=== PATIENT | male | born 1975 | race Caucasian/White ===

== ENCOUNTER 2018-12-02 14:39 | Observation (INO) | payer OTHER ==
--- NOTE | 2018-12-02 15:00 | EDPHY ---
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 He has a laceration, dorsal and palmar aspect to the webspace of his left thumb. This happened just prior to arrival. He denies other injuries. No wrist pain. Severity: Moderate Modifying factors: None REVIEW OF SYSTEMS: Constitutional: denies: chills, fever, recent illness, recent injury EENTM: denies: blurred vision, double vision, nose congestion Respiratory: denies: cough, shortness of breath Cardiac: denies: chest pain, irregular heart rate, lightheadedness, palpitations Gastrointestinal/Abdominal: denies: abdominal pain, diarrhea, nausea, vomiting, blood streaked stools Genitourinary: denies: dysuria, frequency, hematuria, pain Musculoskeletal: See HPI Skin: See HPI Neurological: denies: headache, numbness, paresthesia, tingling, dizziness, weakness Hematologic/Lymphatic: denies: blood clots, easy bleeding, easy bruising Immunologic/allergic: denies: HIV/AIDS, transplant 10 systems reviewed and negative except as noted EXAM: GENERAL: Well-appearing, well-nourished and in no acute distress. HEAD: Atraumatic, normocephalic. EYES: Pupils equal round and reactive to light, extraocular movements intact, sclera anicteric, conjunctiva are normal. ENT: TMs normal, nares patent, oropharynx clear without exudates. Moist mucous membranes. NECK: Normal range of motion, supple without lymphadenopathy or JVD. LUNGS: Breath sounds clear to auscultation bilaterally and equal. No wheezes rales or rhonchi. HEART: Regular rate and rhythm without murmurs, rubs or gallops. ABDOMEN: Soft, nontender, normoactive bowel sounds. No guarding, no rebound. No masses appreciated. BACK: No CVA tenderness, no spinal tenderness, step-offs or deformities EXTREMITIES: Laceration to webspace of left hand. Macerated. There is some skin in the middle head is still connected. Normal movement and sensation distally. Normal capillary refill. Very dirty NEUROLOGICAL: Cranial nerves II through XII grossly intact. Normal speech, normal gait. 5/5 strength, normal movement in all extremities, normal sensation , normal reflexes PSYCH: Normal mood, normal affect. SKIN: Warm, dry, normal turgor, no visible rashes or lesions. Source: Patient Exam Limitations: No limitations - Personal History Current Tetanus/Diphtheria Vaccine: Yes Current Tetanus Diphtheria and Acellular Pertussis (TDAP): Yes - Medical/Surgical History Hx Asthma: No Hx Chronic Respiratory Disease: No Hx Diabetes: No Hx Cardiac Disease: No Hx Renal Disease: No Hx Cirrhosis: No Hx Alcoholism: No Hx HIV/AIDS: No Hx Splenectomy or Spleen Trauma: No Other PMH: denies - Family History Significant Family History: No pertinent family hx - Social History Smoking Status: Heavy smoker Alcohol Use: None Constitutional: Initial Vital Signs Temperature (C) 36.7 C 12/02/18 14:47 Heart Rate 110 H 12/02/18 14:47 Respiratory Rate 20 12/02/18 14:47 Blood Pressure 148/101 H 12/02/18 14:47 O2 Sat (%) 95 12/02/18 14:47 O2 Delivery Mode Room Air Allergies/Adverse Reactions: No Known Allergies Allergy (Unverified 06/07/11 19:13) Home Medications: Medication Instructions Recorded NK [No Known Home Meds] 12/02/18 Medical Decision Making - Diagnostics Imaging Results: Imaging Impressions Hand X-Ray 12/02/18 14:50 Impression: Nondisplaced transverse possibly open fracture of the head of the second metacarpal. Imaging: Discussed imaging studies w/ commercial intelligence manager Radiologist ED Course/Re-evaluation: 3:20 p.m. the patient has an open fracture. I have paged Hand surgery and have initiated antibiotics. 3:30 p.m. discussed the case Dr. Stone who will call the OR. Differential Diagnosis: Partial list of the Differential diagnosis considered include but were not limited to; laceration, fracture, tendon injury, nerve injury, foreign body and although unlikely based on the history and physical exam, I also considered assault, infection. - Data Points Laboratory Results: Laboratory Results 12/02/18 15:25 12/02/18 15:25 12/02/18 12/02/18 12/02/18 15:25 15:25 15:25 WBC RBC Hgb Hct MCV MCH MCHC RDW Plt Count MPV Neut % (Auto) Lymph % (Auto) Bollinger % (Auto) Eos % (Auto) Baso % (Auto) Nucleat RBC Rel Count Absolute Neuts (auto) Absolute Lymphs (auto) Absolute Monos (auto) Absolute Eos (auto) Absolute Basos (auto) Absolute Nucleated RBC Immature Gran % Immature Gran # PT 12.9 SEC SEC (12.0-15.0) INR 1.01 (0.83-1.16) APTT 27.8 SEC SEC (23.0-38.0) Sodium 138 mEq/L mEq/L (135-145) Potassium 3.9 mEq/L mEq/L (3.5-5.2) Chloride 106 mEq/L mEq/L (97-110) Carbon Dioxide 23 mEq/l mEq/l (22-31) Anion Gap 9 mEq/L mEq/L (6-14) BUN 18 mg/dL mg/dL (7-23) Creatinine 0.9 mg/dL mg/dL (0.7-1.3) Estimated GFR > 60 Glucose 178 mg/dL H mg/dL (70-100) Calcium 9.2 mg/dL mg/dL (8.5-10.4) Ethyl Alcohol < 10 mg/dL mg/dL (0-10) Patient ABO/Rh O POSITIVE Antibody Screen NEGATIVE 12/02/18 15:25 WBC 6.12 10^3/uL 10^3/uL (3.80-9.50) RBC 5.18 10^6/uL 10^6/uL (4.40-6.38) Hgb 16.0 g/dL g/dL (13.7-17.5) Hct 45.5 % % (40.0-51.0) MCV 87.8 fL fL (81.5-99.8) MCH 30.9 pg pg (27.9-34.1) MCHC 35.2 g/dL g/dL (32.4-36.7) RDW 12.7 % % (11.5-15.2) Plt Count 302 10^3/uL 10^3/uL (150-400) MPV 10.3 fL fL (8.7-11.7) Neut % (Auto) 54.2 % % (39.3-74.2) Lymph % (Auto) 36.4 % % (15.0-45.0) Bollinger % (Auto) 8.5 % % (4.5-13.0) Eos % (Auto) 0.5 % L % (0.6-7.6) Baso % (Auto) 0.2 % L % (0.3-1.7) Nucleat RBC Rel Count 0.0 % % (0.0-0.2) Absolute Neuts (auto) 3.32 10^3/uL 10^3/uL (1.70-6.50) Absolute Lymphs (auto) 2.23 10^3/uL 10^3/uL (1.00-3.00) Absolute Monos (auto) 0.52 10^3/uL 10^3/uL (0.30-0.80) Absolute Eos (auto) 0.03 10^3/uL 10^3/uL (0.03-0.40) Absolute Basos (auto) 0.01 10^3/uL L 10^3/uL (0.02-0.10) Absolute Nucleated RBC 0.00 10^3/uL 10^3/uL (0-0.01) Immature Gran % 0.2 % % (0.0-1.1) Immature Gran # 0.01 10^3/uL 10^3/uL (0.00-0.10) PT INR APTT Sodium Potassium Chloride Carbon Dioxide Anion Gap BUN Creatinine Estimated GFR Glucose Calcium Ethyl Alcohol Patient ABO/Rh Antibody Screen Medications Given: Discontinued Medications Cefazolin Sodium/Dextrose (Ancef 1 Gm (Premix)) 50 mls @ 200 mls/hr IV EDNOW ONE PRN Reason: Protocol Stop: 12/02/18 15:28 Last Admin: 12/02/18 15:47 Dose: 50 mls Departure - Departure Disposition: [facility] Clinical Impression: Open fracture of left hand excluding finger Qualifiers: Encounter type: initial encounter Qualified Code(s): S62.92XB - Unspecified fracture of left wrist and hand, initial encounter for open fracture Condition: Fair
[2018-12-02 15:40] LABS: PLATELET COUNT 302 10^3/uL (150-400)
[2018-12-02 15:51] LABS: INR 1.01 (0.83-1.16); PROTIME(PATIENT) 12.9 SEC (12.0-15.0)
[2018-12-02] MEDS ORDERED: fentaNYL 100 MCG/2 ML INJ ONE ×5 (19:07→22:09)
[2018-12-02] MEDS ORDERED: LIDOCAINE 2% 5 ML SDV ONE (19:07)
[2018-12-02] MEDS ORDERED: DEXAMETHASONE 4 MG/ML VIAL ONE (19:07)
[2018-12-02] MEDS ORDERED: ROCURONIUM 50 MG/5 ML VIAL ONE (19:07)
[2018-12-02] MEDS ORDERED: PROPOFOL 200 MG/20 ML VIAL ONE (19:07)
[2018-12-02] MEDS ORDERED: ONDANSETRON 4 MG/2 ML VIAL ONE (19:07)
[2018-12-02] MEDS ORDERED: LR 1,000 ML IV ONE (19:24)
[2018-12-02] MEDS ORDERED: MIDAZOLAM 2 MG/2 ML VIAL IVP ONE (19:24)
[2018-12-02] MEDS ORDERED: MIDAZOLAM 2 MG/2 ML VIAL ONE (20:22)
[2018-12-02] MEDS ORDERED: PROMETHAZINE HCL 25 MG/ML INJ IVP PRN (20:34)
[2018-12-02] MEDS ORDERED: PHENYLEPHRINE HCL 100 MCG/ML SYR IVP PRN (20:34)
[2018-12-02] MEDS ORDERED: ACETAMINOPHEN 500 MG TAB PO PRN (20:34)
[2018-12-02] MEDS ORDERED: METOCLOPRAMIDE 10 MG/2 ML VIAL IVP PRN (20:34)
[2018-12-02] MEDS ORDERED: NS 500 ML IV PRN (20:34)
[2018-12-02] MEDS ORDERED: NALOXONE HCL 0.4 MG/ML INJ IVP PRN (20:34)
[2018-12-02] MEDS ORDERED: ALBUTEROL 3 ML DEYVIAL IH PRN (20:34)
[2018-12-02] MEDS ORDERED: oxyCODONE IR 5 MG TAB PO PRN (20:34)
[2018-12-02] MEDS ORDERED: LR 500 ML IV PRN (20:34)
[2018-12-02] MEDS ORDERED: fentaNYL 100 MCG/2 ML INJ IVP PRN (20:34)
--- NOTE | 2018-12-02 20:34 | PDANEPAE ---
ANE Past Medical History - Cardiovascular History Hx Hypertension: No Hx Arrhythmias: No Hx Chest Pain: No - Pulmonary History Hx COPD: No Hx Oxygen in Use at Home: No Hx Sleep Apnea: Yes Sleep Apnea Screening Result - Last Documented: Positive - Endocrine History Hx Diabetes: No Hypothyroid: No - Renal History Hx Renal Disorders: No - Liver History Hx Hepatic Disorders: No - Neurological & Psychiatric Hx Hx Neurological and Psychiatric Disorders: No - Cancer History Hx Cancer: No - Congenital Disorder History Hx Congenital Disorders: No - GI History GERD: no Hx Gastrointestinal Disorders: No ANE Review of Systems Review of Systems: ANE Patient History - Allergies Allergies/Adverse Reactions: No Known Allergies Allergy (Unverified 06/07/11 19:13) - Home Medications Home Medications: NK [No Known Home Meds] 12/02/18 [Last Taken Unknown] - NPO status NPO Since - Liquids (Date): 12/02/18 NPO Since - Liquids (Time): 12:30 NPO Since - Solids (Date): 12/02/18 NPO Since - Solids (Time): 12:30 - Smoking Hx Smoking Status: Heavy smoker - Alcohol Use Alcohol Use: None ANE Labs/Vital Signs - Labs Result Diagrams: 12/02/18 15:25 12/02/18 15:25 - Vital Signs Blood Pressure: 113/74 Heart Rate: 77 Respiratory Rate: 14 O2 Sat (%): 95 Height: 167.64 cm Weight: 72.575 kg ANE Physical Exam - Airway Neck exam: FROM Mallampati Score: Class 2 Mouth exam: normal dental/mouth exam, dentures - Pulmonary Pulmonary: no respiratory distress, no rales or rhonchi, clear to auscultation - Cardiovascular Cardiovascular: regular rate and rhythym, no murmur, rub, or gallop - ASA Status ASA Status: II, E ANE Anesthesia Plan Anesthesia Plan: general endotracheal anesthesia
--- NOTE | 2018-12-02 20:34 | POSTANESTH ---
Post Anesthetic Evaluation Cardiovascular Status: Normal, Stable Respiratory Status: Normal, Stable Level of Consciousness/Mental Status: Can Participate in Eval Pain Control: Adequate, Prn Tx Ordered Nausea/Vomiting Control: Adequate, Prn Tx Ordered Complications Possibly Related to Anesthesia: None Noted
[2018-12-02] MEDS ORDERED: POLYMYXIN B SULFATE 500,000 UNIT/10 ML SYR IRR ONE (21:12)
[2018-12-02] MEDS ORDERED: BACITRACIN 50,000 UNITS/10 ML SYR IRR ONE (21:12)
[2018-12-02] MEDS ORDERED: SUGAMMADEX SODIUM 200 MG/2 ML VIAL IVP ONE (21:14)
[2018-12-02] MEDS ORDERED: ONDANSETRON 4 MG/2 ML VIAL IVP PRN (22:09)
[2018-12-02] MEDS ORDERED: OXYCODONE/APAP 5/325 TAB PO PRN (22:09)
[2018-12-02] MEDS ORDERED: ACETAMINOPHEN 325 MG TAB PO PRN (22:09)
--- NOTE | 2018-12-02 22:09 | POSTOPPROG ---
Post Op Note Date of Operation: 12/02/18 Surgeon: Ella Stone Anesthesia: GET(General Endotracheal) Pre-op Diagnosis: l hand crush injury Procedure: i&d l hand with closure Inf/Abcess present in the surg proc area at time of surgery?: Yes Depth: Deep Incisional (Fascial) EBL: 50-100
[2018-12-02] MEDS ORDERED: HYDROmorphONE/DILAUDID 1 MG/ML INJ ONE (22:18)
[2018-12-02] MEDS: HYDROmorphONE/DILAUDID 1 MG/ML INJ IVP PRN ×2 (22:21→22:34)
[2018-12-02] MEDS: ceFAZolin 2 GM/DEXTROSE 100 ML IV SCH (23:03)
[2018-12-02] MEDS: traMADol 50 MG TAB PO SCH (23:35)
[2018-12-02] MEDS: KETOROLAC 15 MG/1 ML SDV IVP SCH (23:35)
--- NOTE | 2018-12-03 02:49 | GOP ---
[f rep st] OPERATIVE REPORT DATE OF OPERATION: 12/02/2018 SURGEON: Ella Stone MD ANESTHESIA: By endotracheal intubation. PREOPERATIVE DIAGNOSIS: Left hand crush injury with large crush laceration of the dorsal volar porti on of his 1st dorsal web space. POSTOPERATIVE DIAGNOSIS: Left hand crush injury with large crush laceration of the dorsal volar port ion of his 1st dorsal web space with crush injury to the thumb nerves. PROCEDURE PERFORMED: I and D, formal irrigation and debridement of left hand with skin closure. FINDINGS: INDICATIONS: He is a 43-year-old male who got his hand caught in an excavator, crushing the hand wit hin a glove. He noted pain as well as bleeding within the hand. He was seen in the emergency room, diagnosed with a crush injury. He was brought to the operating room as soon as time was available. DESCRIPTION OF PROCEDURE: Patient was brought to the operating room after the left side had been pepe ntified as the correct side by the patient, nurse, and physician. Once in the operating room, he was placed under general anesthesia using endotracheal intubation. Once asleep, he had a tourniquet ying mannie around the upper portion of the left arm with the left upper extremity sterilely prepped and drap ed in the usual fashion using GSI solution. Once prepped and draped, the limb was elevated for 2 min utes, held in place in order for it to be exsanguinated. After 2 minutes, the tourniquet was inflate d to 250 mmHg. 1 L of irrigation was irrigated through both the dorsal and volar portions of the wou nd. There was a very tiny skin bridge associated with the very distal tip of the web space. There w ere several larger fragments of what appeared to be rock that were removed from the area and many sma ller fragments of rock also noted. He had dissection of the soft tissue down well into the thenar em inence. This was also thoroughly debrided. A 2nd liter of antibiotic was irrigated through the woun d with rough skin edges removed, and portions where the skin had been flayed off the underlying epide rmis and down to the dermal layers was debrided, and a 3rd liter of irrigation was used. Once the 3r d liter was performed, the wound was then slowly put back together using Allgower stitches using a 3- 0 nylon suture in order to close the skin and get gentle apposition of the skin pieces together. Onc e in position, the tourniquet had been deflated at 15 minutes with bleeding controlled using electroc autery. Once the skin was completely closed, the wound was dressed with Xeroform on any place that h ad raw skin or had partial-thickness skin removal. This included the index and the middle fingers, w hich had areas of skin that had been abraded off. Once thoroughly dressed, was wrapped in 4x4's, tamiko t padding, and then a dorsal and volar and thumb spica plaster splint was put into place and wrapped in an ROSITA wrap. The arm was completely undraped in the operating room, tourniquet removed from the a rm. Patient was woken up, extubated, transferred onto a stretcher, sent to recovery room in good con dition. TOURNIQUET TIME: 15 minutes. /[id number]/MODL
--- NOTE | 2018-12-03 03:24 | GHP ---
[f rep st] HISTORY AND PHYSICAL DATE OF ADMISSION: 12/02/2018 CURRENT COMPLAINTS: Left hand injury. 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 He had pain and bleeding at the are a. He was seen in the emergency room. I was asked to see the patient for further evaluation. He donis s no drug allergies. No medications. He lists no medical problems and no surgeries. PHYSICAL EXAMINATION: HEENT: The patient's pupils are equal, round, and reactive to light. CHEST: Clear to auscultation. HEART: Regular rate and rhythm. ABDOMEN: Soft and nontender. EXTREMITIES : His left hand has no sensation to the radial and ulnar border of the thumb or the radial border of his index finger. He has much better sensation on the ulnar border of his index finger. His FDP re noni intact into his index finger, and his EPL and FPL remain intact across the thumb. He has a lar ge crush wound on the dorsal and volar webspace of his thumb with a dirty wound noted. X-ray exam reveals fracture of the 2nd metacarpal head with no displacement with abundant foreign bod y noted within the webspace. ASSESSMENT AND PLAN: Patient is status post left hand crush injury. Plan is to take him to the oper ating room to undergo a formal irrigation and debridement as soon as time is available. /[id number]/MODL
[2018-12-03] MEDS: KETOROLAC 15 MG/1 ML SDV IVP SCH ×2 (05:07→11:51)
[2018-12-03] MEDS: traMADol 50 MG TAB PO SCH ×2 (05:07→11:51)
[2018-12-03] MEDS: ceFAZolin 2 GM/DEXTROSE 100 ML IV SCH (08:54)
[2018-12-03 11:43] VITALS: BP 115/68
--- NOTE | 2018-12-03 13:27 | SOAPPROG ---
SOAP Progress Note Assessment/Plan: Assessment: Plan: Subjective: sttes he's comfortable with pain meds dressing in place with improved sensaton to radial IF and ulnar thumb DC to home today after 3rd dose of abx Objective: Vital Signs Temp Pulse Resp BP Pulse Ox 36.4 C 63 16 115/68 95 12/03/18 11:41 12/03/18 11:41 12/03/18 11:41 12/03/18 11:41 12/03/18 11:41 12/02/18 12/03/18 12/04/18 05:59 05:59 05:59 Intake Total 1220 300 Output Total 810 Balance 410 300 PT 12.9 SEC (12.0-15.0) 12/02/18 15:25 INR 1.01 (0.83-1.16) 12/02/18 15:25 ICD10 Worksheet Patient Problems: Problems Problem Status Onset Open fracture of left hand excluding finger Acute
--- NOTE | 2018-12-03 15:13 | ASDISCHSUM ---
Discharge Information Plan Status:Home with No Needs Medically Cleared to Leave: Discharge Date: D/C Disposition:Home, Routine, Self-Care ADT D/C Disposition: Projected Discharge Date: Transportation at D/C:Family Discharge Delay Reason: Follow-Up Date: Discharge Slot: Final Diagnosis: Placement Information Patient Contact Information Contact Name:ELIAN Relationship: Address:[address] [place] [address] Work Phone: City:[facility] Phone: State/Zip Code:[place] [address] Email: Financial Information Financial Class:Worker's Compensation Primary Plan Desc:WORKERS COMPENSATION Primary Plan Number:XXXX Secondary Plan Desc: Secondary Plan Number: Assessment Information BC CM Progress Note CM Note CM Note Notes: CM reviewed chart for d/c planning. Pt is a 43 y/o man who presented to the ED with an injury to his hand. Pt had an I and D, formal irrigation and debridement of left hand with skin closure. No CM needs identified. D/C Plan: Independent Date Signed: 12/03/2018 03:12 PM Electronically Signed By:Vanda Menon Intervention Information
== END 2018-12-03 15:24 | disposition home or self-care (01) ==
LOC: F3N 17:15
PROVIDERS: ADMIT Orthopaedic Surgery; ATTEND Orthopaedic Surgery
PROC: 0PCQ0ZZ Extirpation of Matter from Left Metacarpal, Open Approach (ICD-10-PCS; principal; 2018-12-02 20:30)
DX: S67.22XA Crushing injury of left hand, initial encounter (principal); S62.92XB Unspecified fracture of left hand, initial encounter for open fracture; W31.89XA Contact with other specified machinery, initial encounter
CPT/HCPCS: 11012; 73130; 99285; G0378; G0480; J0690; J1100; J1170; J1885; J2250; J2270; J2405; J2704; J3010